=== PATIENT | female | born 1990 | race Caucasian/White ===

== ENCOUNTER 2017-04-15 14:46 | Inpatient (IN) | payer OTHER ==
[~2017-04-15] VITALS: Ht 160 cm; Wt 80.0 kg
--- NOTE | ~2017-04-15 | OR ---
PATIENT'S NAME: IND[place] GODFREY [facility] AGE: 26 Y [address] ROOM: [place] [id number] LOCATION: GOBS ADMIT DATE: 04/15/2017 OR/Procedure Report DISCHARGE DATE: 04/17/2017 FAMILY PHYSICIAN: PHYSICIAN, NO ATTENDING PHYSICIAN: Jordan Ramirez SURGEON: Jazzmine Jerez MD SPD TECH: DATE OF PROCEDURE: 04/15/2017 INDICATIONS: This is a 26-year-old 1, who is 39 weeks gestation. She was brought over from the office because she was 4 cm dilated, and had a blood pressure of 160/110. DESCRIPTION OF PROCEDURE: An amniotomy was performed, and she had Pitocin started that reached 55 milliunits per minute. The blood pressure in Labor and Delivery was better, and her laboratory work was normal. She began progressing quickly, and got to an anterior lip and then quickly got to complete. She wanted to push with the pushing bar in a knee-chest position, and pushed for several contractions and delivered. She delivered the vertex; hard to say exactly what position, it looked like occiput anterior. Shoulders were delivered followed by the baby's body. Baby girl lets out a spontaneous cry. Her cord was doubly clamped and cut. She was placed on maternal chest after we laid down the mother. Placenta delivered spontaneously and intact after 20 minutes. The cervix and vagina looked to be intact. It is difficult to tell because of the discomfort of the mother. She got half a dose of fentanyl during her labor, and I injected the first-degree laceration with 1% Xylocaine. A 2-0 chromic was used to close the incision. The patient tolerated the procedure well. She and her baby girl JAZZMINE JEREZ MD KHP/modl /[id number] d: 04/15/[id number] t: 04/28/17 0857, OPERATIVE SUMMARY
[~2017-04-15 14:46] MED LIST: PRENATAL 1+1)(P1 TAB PO; UNISOM 25 MG25 MG PO
[2017-04-15 17:05] LABS: BASOPHIL % 0.3 %; EOSINOPHIL # 0.1 K/uL (0.0-0.5); EOSINOPHIL % 0.5 %; HEMATOCRIT 36.2 % (33.0-46.0); HEMOGLOBIN 12.4 g/dL (11.0-15.0); IMMATURE GRANULOCYTE # 0.1 K/uL (0.0-0.3); IMMATURE GRANULOCYTE % 0.9 %; LYMPHOCYTE % 15.6 %; MCH 31.6 pg (27.0-34.0); MCHC 34.3 gm/dL (32.0-36.5); MCV 92.3 fl (83.0-98.0); MONOCYTE # 0.8 K/uL (0.0-1.0); MONOCYTE % 6.4 %; MPV 10.6 fl (9.4-12.4); NEUTROPHIL # (ANC) 9.9 K/uL (1.8-7.8); NEUTROPHIL % 76.3 %; NRBC % 0 /100WBC (0-0.00); PLATELET COUNT 189 K/uL (150-450); RBC 3.92 M/uL (3.50-5.00); RDW-CV 13.1 % (11.9-14.6); WBC 12.9 K/uL (4.0-11.0)
[2017-04-15 17:22] LABS: ALBUMIN 2.4 gm/dL (3.5-5.0); ALK PHOS 140 IU/L (33-138); ALT 31 IU/L (12-78); ANION GAP 12.8 (10.0-19.0); AST 28 IU/L (10-40); BLOOD UREA NITROGEN 9 mg/dL (6-24); CHLORIDE 108 mMol/L (96-110); CO2 21 mMol/L (22-32); CREATININE 0.6 mg/dL (0.5-1.1); POTASSIUM 3.8 mMol/L (3.7-5.1); SODIUM 138 mMol/L (135-145); TOTAL BILIRUBIN 0.4 mg/dL (0.0-1.5)
[2017-04-15 17:29] LABS: BILIRUBIN URINE NEGATIVE (NEGATIVE); BLOOD URINE 250 /UL (NEGATIVE); COLOR URINE YELLOW (YELLOW); GLUCOSE URINE NEGATIVE (NEGATIVE); KETONE URINE NEGATIVE (NEGATIVE); LEUKOCYTES URINE 100 /UL (NEGATIVE); NITRITE URINE NEGATIVE (NEGATIVE); PROTEIN URINE NEGATIVE (NEGATIVE); TURBIDITY URINE 2+ (CLEAR); UROBILINOGEN URINE NORMAL (NORMAL)
[2017-04-15 17:42] LABS: BACTERIA URINE MODERATE (NEGATIVE); EPITHELIAL URINE 20-50 #/HPF (NEGATIVE)
[2017-04-16 05:02] LABS: BASOPHIL % 0.3 %; EOSINOPHIL % 0.2 %; HEMATOCRIT 32.7 % (33.0-46.0); HEMOGLOBIN 11.5 g/dL (11.0-15.0); IMMATURE GRANULOCYTE # 0.1 K/uL (0.0-0.3); IMMATURE GRANULOCYTE % 0.7 %; LYMPHOCYTE # 2.2 K/uL (0.8-4.0); LYMPHOCYTE % 14.8 %; MCH 32.4 pg (27.0-34.0); MCHC 35.2 gm/dL (32.0-36.5); MCV 92.1 fl (83.0-98.0); MONOCYTE % 6.5 %; MPV 10.8 fl (9.4-12.4); NEUTROPHIL # (ANC) 11.4 K/uL (1.8-7.8); NEUTROPHIL % 77.5 %; NRBC % 0 /100WBC (0-0.00); PLATELET COUNT 171 K/uL (150-450); RBC 3.55 M/uL (3.50-5.00); RDW-CV 12.7 % (11.9-14.6); WBC 14.7 K/uL (4.0-11.0)
--- NOTE | 2017-04-16 16:55 | NUR ---
Significant Event: Follow up: [facility]SS, hbg 11.5, from 12.4., got a dose of "IM metherine after delivery, has had small vag bleeding today, no clots reported. Medicated with motrin @ 3774. Plan home tomorrow.
[2017-04-17] MEDS ORDERED: MOTRIN800 MG PO (07:21)
[2017-04-17] MEDS ORDERED: PERCOCET 5-3251 EACH PO (07:21)
== END 2017-04-17 11:30 | disposition disaster alternative care site (69) | DRG 775 ==
LOC: GOBS 14:46 → GOBM 14:46 → GOBS 14:50 → GOBM 04-17 13:35
PROVIDERS: Obstetrics & Gynecology; ADMIT Obstetrics & Gynecology
PROC: 0HQ9XZZ Repair Perineum Skin, External Approach (ICD-10-PCS; principal; 2017-04-15)
PROC: 10E0XZZ Delivery of Products of Conception, External Approach (ICD-10-PCS; 2017-04-15)
DX: O13.3 Gestational [pregnancy-induced] hypertension without significant proteinuria, third trimester (principal); Z37.0 Single live birth; Z3A.39 39 weeks gestation of pregnancy
CPT/HCPCS: J2001; J2210; J2590; J3010; J7120